=== PATIENT | female | born 1945 | race Caucasian/White ===

== ENCOUNTER 2022-03-03 20:35 | Emergency (ER) | payer MEDICARE, OTHER ==
[~2022-03-03 20:35] MED LIST: LEVAQUIN500 MG PO
[2022-03-04] MEDS ORDERED: CIPRO500 M1 PO (00:08)
[2022-03-04] MEDS ORDERED: AMOX TR-K CLV1 EAC4 PO (00:08)
== END 2022-03-04 00:28 | disposition home or self-care (01) ==
LOC: FER 20:35
DX: S81.812A Laceration without foreign body, left lower leg, initial encounter (principal); S81.811A Laceration without foreign body, right lower leg, initial encounter; Z23 Encounter for immunization; Z88.5 Allergy status to narcotic agent; W61.39XA Other contact with chicken, initial encounter; Y92.009 Unspecified place in unspecified non-institutional (private) residence as the place of occurrence of the external cause
CPT/HCPCS: 73560; 73590; 90471; 90715